=== PATIENT | female | born 1975 | race Two or more races ===

== ENCOUNTER 2023-09-26 12:05 | Emergency (ER) | payer OTHER ==
[2023-09-26 12:43] VITALS: RESP 18; BMI 29.7
[2023-09-26] MEDS: SODIUM CHLORIDE 1,000 ML IV STA (12:50)
[2023-09-26] MEDS: ACETAMINOPHEN 1000 MG/100 ML BAG IVPB ONE (12:55)
[2023-09-26] MEDS: FAMOTIDINE 20 MG/50 ML IVPB 20 MG/50 ML MG IVPB ONE (13:35)
[2023-09-26] MEDS ORDERED: METOCLOPRAMIDE HCL INJECTION 10 MG/2 ML VIAL ONE (13:47)
[2023-09-26] MEDS ORDERED: FAMOTIDINE 20 MG/50 ML IVPB 20 MG/50 ML MG IVPB ONE (13:47)
[2023-09-26] MEDS ORDERED: ACETAMINOPHEN INJECTION 100 ML IVPB ONE (13:47)
[2023-09-26] MEDS: METOCLOPRAMIDE HCL INJECTION 10 MG/2 ML VIAL IVPB ONE (14:00)
[2023-09-26 14:24] LABS: HCG,QUALITATIVE URINE Negative
[2023-09-26 14:28] LABS: HEMATOCRIT 46.9 % (32.4-45.2); HEMOGLOBIN 15.8 G/dL (10.7-15.3); MCHC 33.7 g/dl (32.0-36.0); MEAN CELL VOLUME 95.2 fl (80-96); MEAN PLT VOLUME 8.3 fl (7.5-11.1); RBC 4.93 10^6/uL (3.60-5.2); RDW 13.1 % (11.6-15.6); WHITE BLOOD COUNT 2.4 10^3/uL (4.0-10.8)
[2023-09-26 14:29] LABS: INR 1.03 (0.83-1.09); PROTHROMBIN TIME (PATIENT) 11.9 SEC (9.7-13.0)
[2023-09-26 14:32] LABS: ACTIVATED PTT 29.6 SECONDS (25.2-36.5)
[2023-09-26 14:35] LABS: ALBUMIN 4.7 g/dl (3.4-5.0); BILIRUBIN,TOTAL 1.2 mg/dl (0.2-1); CALCIUM 9.7 mg/dl (8.5-10.1); CREATININE 0.8 mg/dl (0.6-1.3); POTASSIUM 4.5 mmol/L (3.5-5.1); TOT PROT 8.3 g/dl (6.4-8.2)
[2023-09-26 14:54] LABS: PLATELET ESTIMATE ADEQUATE
[2023-09-26] MEDS ORDERED: MAG HYDROX/AL HYDROX/SIMETH 30 ML UNIT-DOSE CUP ONE (17:56)
[2023-09-26] MEDS: MAG HYDROX/AL HYDROX/SIMETH 30 ML UNIT-DOSE CUP PO ONE (18:16)
[2023-09-26 18:38] VITALS: BP 116/74; PULSE 82; TEMP 98.2
== END 2023-09-26 18:51 | disposition home or self-care (01) ==
LOC: FER 12:05
PROC: 3E033GC Introduction of Other Therapeutic Substance into Peripheral Vein, Percutaneous Approach (ICD-10-PCS; principal; 2023-09-26)
PROC: 3E030NZ Introduction of Analgesics, Hypnotics, Sedatives into Peripheral Vein, Open Approach (ICD-10-PCS; 2023-09-26)
PROC: 3E030GC Introduction of Other Therapeutic Substance into Peripheral Vein, Open Approach (ICD-10-PCS; 2023-09-26)
PROC: 3E0337Z Introduction of Electrolytic and Water Balance Substance into Peripheral Vein, Percutaneous Approach (ICD-10-PCS; 2023-09-26)
DX: R10.12 Left upper quadrant pain (principal); R10.32 Left lower quadrant pain; R42 Dizziness and giddiness
CPT/HCPCS: 36415; 74177-TC; 80053; 80162; 81003; 83605; 83690; 84484; 84703; 85027; 85610; 85730; 87086; 93005; 99285-25; J0131; Q9967